=== PATIENT | female | born 1940 | race Caucasian/White ===

== ENCOUNTER 2020-01-06 19:11 | Emergency (ER) | payer OTHER ==
[~2020-01-06 19:11] MED LIST: ETOMIDATE 2 MG/ML 10 ML VIAL ONE; SUCCINYLCHOLINE CHLORIDE 20 MG/ML 10 ML VIAL ONE
[2020-01-06] MEDS ORDERED: KETAMINE HCL 100 MG/ML 5ML VIAL IJ ONE (22:06)
[2020-01-06] MEDS ORDERED: LORAZEPAM 2 MG/ML 1 ML VIAL ONE (22:07)
[2020-01-06] MEDS ORDERED: ONDANSETRON HCL 4 MG/2 ML VIAL ONE (22:12)
== END 2020-01-06 23:32 | disposition home or self-care (01) ==
LOC: EDH 19:11
DX: S52.571A Other intraarticular fracture of lower end of right radius, initial encounter for closed fracture (principal); S52.572A Other intraarticular fracture of lower end of left radius, initial encounter for closed fracture; E03.9 Hypothyroidism, unspecified; F32.9 Major depressive disorder, single episode, unspecified; Z88.0 Allergy status to penicillin; Z90.49 Acquired absence of other specified parts of digestive tract; W19.XXXA Unspecified fall, initial encounter; Y93.01 Activity, walking, marching and hiking; Y92.89 Other specified places as the place of occurrence of the external cause; Y99.8 Other external cause status
CPT/HCPCS: 25605; 73100 ×2; 73110 ×2; 99152; 99285; J0330; J2060; J2405; J3490 ×2